=== PATIENT | female | born 1940 | race African-American/Black ===

== ENCOUNTER 2021-11-19 21:54 | Inpatient (IN) | payer OTHER ==
[~2021-11-19] VITALS: Ht 170.2 cm; Wt 50.9 kg
[2021-11-19] MEDS ORDERED: DILTIAZEM HCL 5MG/ML 5ML VIAL IV ONE (22:45)
[2021-11-19 23:39] LABS: BASOPHILS % 1.1 % (0.0-2.0); EOSINOPHILS % 4.7 % (0.0-5.0); HEMATOCRIT. 27.4 % (36.0-48.0); HEMOGLOBIN. 8.9 g/dL (12.0-16.0); MEAN CORPUSCULAR HEMOGLOBIN 29.4 pg (28.0-32.0); MEAN CORPUSCULAR VOLUME 90.3 fL (81.0-99.0); MEAN PLATELET VOLUME 8.3 fl (7.4-10.4); MONOCYTES % 9.3 % (2.0-8.0); NEUTROPHILS % 62.9 % (40.0-76.0); PLATELET 385 x1000/uL (130-400); RED BLOOD CELL COUNT 3.03 mill/uL (4.2-5.4); RED CELL DISTRIBUTION WIDTH 14.7 % (11.6-14.6)
[2021-11-19 23:43] LABS: CHLORIDE 109 mEq/L (98-107)
[2021-11-20] MEDS ORDERED: ASPIRIN 325MG EC TABLET PO NR (00:15)
[2021-11-20] MEDS ORDERED: HYDROCODONE/ACETAMINOPHEN 5/325MG TABLET PO PRN (04:00)
[2021-11-20] MEDS ORDERED: ONDANSETRON HCL 4MG/2ML INJ IV PRN (04:00)
[2021-11-20] MEDS ORDERED: IPRATROPIUM/ALBUTEROL 0.5-3(2.5)MG/3ML NEB HHN PRN (04:00)
[2021-11-20] MEDS ORDERED: ACETAMINOPHEN 325MG TABLET PO PRN ×2 (04:00)
[2021-11-20] MEDS ORDERED: MAGNESIUM/ALUMINUM HYDROXIDE/SIMETHICONE 30ML UDC PO PRN (04:00)
[2021-11-20] MEDS ORDERED: GUAIFENESIN 200MG/10ML SUGAR FREE UDC PO PRN (04:00)
[2021-11-20] MEDS ORDERED: CLONIDINE 0.1MG TABLET PO PRN (04:00)
[2021-11-20] MEDS ORDERED: DOCUSATE SODIUM 100MG CAPSULE PO PRN (04:00)
[2021-11-20] MEDS ORDERED: NALOXONE HCL 0.4MG/ML VIAL IV PRN (04:30)
[2021-11-20 08:00] VITALS: BP 192/62
[2021-11-20] MEDS: FUROSEMIDE 40MG/4ML VIAL IV SCH ×2 (09:00→09:43)
[2021-11-20] MEDS ORDERED: ENOXAPARIN 40MG/0.4ML SYR SUBCUT SCH (09:00)
[2021-11-20] MEDS ORDERED: AMLODIPINE 10MG TABLET PO SCH (09:00)
[2021-11-20 09:15] LABS: BASOPHILS % 1.4 % (0.0-2.0); EOSINOPHILS % 5.7 % (0.0-5.0); HEMATOCRIT. 23.5 % (36.0-48.0); HEMOGLOBIN. 7.6 g/dL (12.0-16.0); LYMPHOCYTES % 25.2 % (20.0-50.0); MEAN CORPUSCULAR HEMOGLOBIN 29.2 pg (28.0-32.0); MEAN CORPUSCULAR VOLUME 89.9 fL (81.0-99.0); MEAN PLATELET VOLUME 8.4 fl (7.4-10.4); MONOCYTES % 13.8 % (2.0-8.0); NEUTROPHILS % 53.9 % (40.0-76.0); PLATELET 326 x1000/uL (130-400); RED BLOOD CELL COUNT 2.61 mill/uL (4.2-5.4); RED CELL DISTRIBUTION WIDTH 14.3 % (11.6-14.6)
[2021-11-20 09:26] LABS: CHLORIDE 111 mEq/L (98-107)
[2021-11-20 09:42] LABS: CREATINE KINASE 98 IU/L (26-192)
[2021-11-20] MEDS: METOPROLOL TARTRATE 25MG TABLET PO SCH ×2 (09:43→18:01)
[2021-11-20] MEDS ORDERED: LOSARTAN POTASSIUM 25 MG TABLET PO SCH (11:15)
[2021-11-20] MEDS: DILTIAZEM HCL 30MG TABLET PO SCH ×3 (11:51→23:35)
[2021-11-20 11:58] VITALS: BP 175/55
[2021-11-20 16:00] VITALS: BP 136/49
[2021-11-20 20:00] VITALS: BP 150/52
[2021-11-20 21:40] LABS: TOTAL IRON BINDING CAPACITY 361 ug/dL (250-450)
[2021-11-20 21:50] LABS: FERRITIN 10 ng/mL (10-291)
[2021-11-20 21:51] LABS: CARCINO EMBRYONIC ANTIGEN 0.5 ng/ml
[2021-11-20 22:02] LABS: HEPATITIS B SURFACE ANTIGEN NEGATIVE
[2021-11-20 22:06] LABS: VITAMIN B12 SERUM > 2000.0 pg/mL (211-911)
[2021-11-21] VITALS: BP 159/57
[2021-11-21 04:00] VITALS: BP 166/55
[2021-11-21] MEDS: DILTIAZEM HCL 30MG TABLET PO SCH ×4 (05:57→23:44)
[2021-11-21 08:00] VITALS: BP 101/42
[2021-11-21 08:14] LABS: BASOPHILS % 1.3 % (0.0-2.0); EOSINOPHILS % 6.8 % (0.0-5.0); HEMATOCRIT. 22.5 % (36.0-48.0); HEMOGLOBIN. 7.4 g/dL (12.0-16.0); LYMPHOCYTES % 26.4 % (20.0-50.0); MEAN CORPUSCULAR HEMOGLOBIN 29.7 pg (28.0-32.0); MEAN PLATELET VOLUME 8.8 fl (7.4-10.4); MONOCYTES % 13.6 % (2.0-8.0); NEUTROPHILS % 51.9 % (40.0-76.0); PLATELET 319 x1000/uL (130-400); RED CELL DISTRIBUTION WIDTH 14.4 % (11.6-14.6)
[2021-11-21] MEDS: METOPROLOL TARTRATE 25MG TABLET PO SCH ×4 (09:00→17:13)
[2021-11-21] MEDS: FUROSEMIDE 40MG/4ML VIAL IV SCH (09:07)
[2021-11-21 12:00] VITALS: BP 160/52
[2021-11-21 12:40] LABS: CLARITY URINE CLEAR (CLEAR); COLOR URINE YELLOW (YELLOW); KETONES URINE NEGATIVE (NEGATIVE); LEUKOCYTE ESTERASE URINE NEGATIVE (NEGATIVE); NITRITE URINE NEGATIVE (NEGATIVE); OCCULT BLOOD URINE NEGATIVE (NEGATIVE); PROTEIN URINE NEGATIVE (NEGATIVE); SPECIFIC GRAVITY URINE 1.006 (1.005-1.030); UROBILINOGEN URINE 0.2 E.U./dL (0.2-1.0)
[2021-11-21 16:00] VITALS: BP 146/48
[2021-11-21] MEDS: ASCORBIC ACID 500 MG TABLET PO SCH (16:56)
[2021-11-21] MEDS: IRON SUCROSE COMPLEX 100 MG/5 ML ML IV SCH (16:56)
[2021-11-21] MEDS: AMIODARONE HCL 200 MG TABLET PO SCH ×2 (16:56→21:00)
[2021-11-21 18:21] LABS: HEMATOCRIT 25.2 % (36.0-48.0); HEMOGLOBIN 8.1 g/dL (12.0-16.0)
[2021-11-21 18:31] LABS: INR 1.1; PROTHROMBIN TIME 11.8 sec (9.6-11.0)
[2021-11-21 20:00] VITALS: BP 142/64
[2021-11-22] VITALS: BP 157/48
[2021-11-22 03:39] VITALS: BP 145/50
[2021-11-22] MEDS: DILTIAZEM HCL 30MG TABLET PO SCH ×2 (05:48→10:12)
[2021-11-22 08:00] VITALS: BP 148/40
[2021-11-22 08:07] LABS: CANCER ANTIGEN 125 7.6 U/mL (0.0-38.1)
[2021-11-22 08:11] LABS: EOSINOPHILS % 3.5 % (0.0-5.0); HEMATOCRIT. 24.3 % (36.0-48.0); HEMOGLOBIN. 7.9 g/dL (12.0-16.0); LYMPHOCYTES % 15.4 % (20.0-50.0); MEAN CORPUSCULAR HEMOGLOBIN 29.4 pg (28.0-32.0); MEAN CORPUSCULAR VOLUME 89.9 fL (81.0-99.0); MEAN PLATELET VOLUME 8.6 fl (7.4-10.4); MONOCYTES % 13.5 % (2.0-8.0); NEUTROPHILS % 66.6 % (40.0-76.0); PLATELET 368 x1000/uL (130-400); RED CELL DISTRIBUTION WIDTH 14.4 % (11.6-14.6)
[2021-11-22] MEDS: FUROSEMIDE 40MG/4ML VIAL IV SCH (09:58)
[2021-11-22] MEDS: ASCORBIC ACID 500 MG TABLET PO SCH (10:11)
[2021-11-22] MEDS: AMIODARONE HCL 200 MG TABLET PO SCH (10:12)
[2021-11-22] MEDS: METOPROLOL TARTRATE 25MG TABLET PO SCH (10:12)
[2021-11-22] MEDS: IRON SUCROSE COMPLEX 100 MG/5 ML ML IV SCH (12:27)
[2021-11-22] MEDS ORDERED: AMI2 PO (14:50)
[2021-11-22] MEDS ORDERED: ASCO500C18 MT (14:50)
[2021-11-22] MEDS ORDERED: FERR325T23 MT (14:50)
[2021-11-22] MEDS ORDERED: DILT30TA38 MT (14:50)
[2021-11-22] MEDS ORDERED: METO25TA6 MT (14:50)
[2021-11-22 14:52] VITALS: BP 131/30
== END 2021-11-22 17:44 | disposition home or self-care (01) | DRG 310 ==
LOC: ER 21:54 → MICUSO 11-20 02:15 → ENRESERV 11-20 02:52 → 6WST 11-20 05:59
PROVIDERS: ADMIT Family Medicine Adult Medicine; ATTEND Family Medicine Adult Medicine
DX: I48.0 Paroxysmal atrial fibrillation (principal); D50.9 Iron deficiency anemia, unspecified; I10 Essential (primary) hypertension; J44.9 Chronic obstructive pulmonary disease, unspecified; E83.52 Hypercalcemia; I16.0 Hypertensive urgency; E87.8 Other disorders of electrolyte and fluid balance, not elsewhere classified; R77.8 Other specified abnormalities of plasma proteins; Z86.73 Personal history of transient ischemic attack (TIA), and cerebral infarction without residual deficits; Z87.11 Personal history of peptic ulcer disease; Z90.49 Acquired absence of other specified parts of digestive tract; Z79.01 Long term (current) use of anticoagulants; Z87.891 Personal history of nicotine dependence
CPT/HCPCS: 36415; 71045; 76700; 80048; 80053; 80061; 81003; 82330; 82378; 82550; 82607; 82728; 82746; 82962; 83540; 83550; 83735; 83880; 84443; 84484; 85014; 85018; 85025; 85044; 86301; 86304; 86705; 86709; 86803; 86850; 86900; 87340; 93005; 93306; 97161; 97162; 97165; 97166; 99291; J1650; J1940; J3490